=== PATIENT | male | born 1960 ===

== ENCOUNTER 2016-11-24 22:23 | Emergency (ER) | payer OTHER ==
[2016-11-24 22:39] VITALS: RESP 18; TEMP 99.3
[2016-11-24] MEDS ORDERED: Sodium Chloride 0.9% 1,000 ML IV ONE (22:53)
--- NOTE | 2016-11-24 22:58 | C.PDOC ---
History Of Present Illness Patient presents to ED c/o fatigue and dry, chapped/cracking lips for approx 3 days. Patient is s/p PO Keflex (finished 1 week ago) given to him by agriculture teacher (Dr. Short) for skin rash/infection. He has h/o DM II , gout, HTN, hyperlipidemia. He admits he has had this type of rash for several months (6-8), and that is has improved after antibiotics. Patient states he was told by agriculture teacher that rash could be due to stress. He denies chest pain, palpitations, SOB, sore throat, skin peeling, fever, abdominal pain, nausea/vomiting. Time Seen by Provider: 11/24/16 22:44 Chief Complaint (Nursing): Medical Clearance History Per: Patient History/Exam Limitations: no limitations Onset/Duration Of Symptoms: Days (3) Current Symptoms Are (Timing): Still Present Severity: Mild Reports Recently: Treated By A Physician (dermatology ) Past Medical History Reviewed: Historical Data, Nursing Documentation, Vital Signs Vital Signs: Last Vital Signs Temp 99.3 F 11/24/16 22:35 Pulse 81 11/25/16 00:53 Resp 18 11/25/16 00:53 BP 125/76 11/25/16 00:53 Pulse Ox 100 11/25/16 00:53 - Medical History PMH: Arthritis, Diabetes, HTN Family History: States: No Known Family Hx - Social History Hx Alcohol Use: No Hx Substance Use: No - Immunization History Hx Tetanus Toxoid Vaccination: No Hx Influenza Vaccination: No Hx Pneumococcal Vaccination: No Review Of Systems Except As Marked, All Systems Reviewed And Found Negative. Constitutional: Positive for: Weakness, Malaise. Negative for: Fever, Chills Cardiovascular: Negative for: Chest Pain, Palpitations Respiratory: Negative for: Cough, Shortness of Breath Gastrointestinal: Negative for: Nausea, Vomiting Genitourinary: Negative for: Dysuria, Hematuria Skin: Positive for: Rash (improving ) Physical Exam - Physical Exam Appears: Well, Non-toxic, No Acute Distress Skin: Warm, Rash (diffuse dry, scaly circular appearing rash on extremities ) Nose: Normal Oral Mucosa: Moist Tongue: Normal Appearing, No Lesions Lips: No Swelling, Other (dry and peeling/chapped lips) Throat: Normal, No Erythema, No Exudate, No Drooling Cardiovascular: Rhythm Regular Respiratory: Normal Breath Sounds, No Rales, No Rhonchi, No Wheezing Gastrointestinal/Abdominal: Normal Exam, Bowel Sounds, Soft, No Tenderness Pulses: Left Dorsalis Pedis: Normal, Right Dorsalis Pedis: Normal Neurological/Psych: Oriented x3 ED Course And Treatment - Laboratory Results Result Diagrams: 11/24/16 23:24 11/24/16 23:24 O2 Sat by Pulse Oximetry: 96 (RA) Pulse Ox Interpretation: Normal Progress Note: Blood work ordered and reviewed. Patient given IV NS bolus. Reevaluation Time: 00:35 Reassessment Condition: Improved Medical Decision Making Medical Decision Making: Patient with chronic rash > 6 months, s/p PO Keflex 1 week ago, started on allopurinol for possible gout 3-4 weeks ago. Chapped/cracked lips, however no intraoral or other mucous membrance involvement, no sloughing of skin. Patient confirms rash has improved after antibiotics. Differential diagnoses include drug reactions, erythema multiforme, lani hayley syndrome. Patient's blood work WNL, and patient well appearing, with normal vitals. He was offered admission however refuses, states he feels well and prefers to go home. He has signed out against my medical advice and understands that he risks worsening of his current condition. Patient isntructed to stop taking allopurinol, and to return to ER immediately if symptoms worsen/spread to other areas. Otherwise he should follow up with PMD on Saturday. Disposition Counseled Patient/Family Regarding: Studies Performed, Diagnosis, Need For Followup, Rx Given - Disposition Referrals: Anastacio Gee MD [Staff Provider] - Disposition: HOME/ ROUTINE Disposition Time: 00:35 Condition: STABLE Additional Instructions: SEGUIMIENTO CON EL DR GEE EL DE RUPERT ALLOPURINOL BEBER MUCHO LQUIDO SI SE OCURREN SNTOMAS DE LABIOS CHAPPED O DESGLOSE DE OTRAS MEMBRANAS DE PIEL / MUCUS, LLAME [address] [facility] Prescriptions: Mineral Oil/Hydrophil Petrolat [Aquaphor] 1 oin TP TID #1 oin Instructions: Weakness (ED) Forms: [employer] (Malian), (AMA) Informed Refusal Print Language: ICELANDIC - POA Present On Arrival: None - Clinical Impression Clinical Impression: Rash, Chapped lips, Generalized weakness, Left against medical advice
[2016-11-24] MEDS ORDERED: Sodium Chloride 0.9% 1,000 ML ONE (23:10)
[2016-11-24 23:28] LABS: BASO # 0.1 K/uL (0.0-0.2); BASO % 1.1 % (0.0-2.0); EOS # 0.2 K/uL (0.0-0.7); EOS % 4.1 % (0.0-4.0); HEMATOCRIT 41.8 % (35.0-51.0); LYMPH # 1.1 K/uL (1.0-4.3); LYMPH % 20.8 % (20.0-40.0); MEAN CELL VOLUME 90.4 fL (80.0-94.0); MEAN CORPUSCULAR HEMOGLOBIN 30.3 pg (27.0-31.0); MEAN CORPUSCULAR HGB CONC 33.6 g/dL (33.0-37.0); MEAN PLATELET VOLUME 9.1 fL (7.2-11.7); MONO # 0.9 K/uL (0.0-0.8); MONO % 16.8 % (0.0-10.0); RED CELL DISTRIBUTION WIDTH 12.3 % (11.5-14.5); WHITE BLOOD COUNT 5.4 K/uL (4.8-10.8)
[2016-11-24 23:37] LABS: INR 0.9
[2016-11-24 23:38] LABS: CHLORIDE 95 mmol/L (98-107)
[2016-11-24 23:39] LABS: POTASSIUM 4.6 mmol/L (3.6-5.2); SODIUM 131 mmol/L (132-148)
[2016-11-24 23:41] LABS: ALB/GLOB RATIO 1.2 (1.0-2.1); ALKALINE PHOSPHATASE 69 U/L (38-126); ALT/SGPT 47 U/L (21-72); AST/SGOT 33 U/L (17-59); BILIRUBIN,TOTAL 0.7 mg/dL (0.2-1.3); BLOOD UREA NITROGEN 34 mg/dL (9-20); CARBON DIOXIDE 21 mmol/L (22-30); GFR AFRICAN-AMERICAN > 60; GLUCOSE,RANDOM 228 mg/dL (75-110); TOTAL PROTEIN 7.2 g/dL (6.3-8.3)
[2016-11-24 23:42] LABS: CALCIUM 8.7 mg/dl (8.6-10.4)
[2016-11-25 00:53] VITALS: BP 125/76; PULSE 81
[2016-11-29 17:47] VITALS: O2SAT 96
== END 2016-11-25 00:54 | disposition home or self-care (01) ==
LOC: C.ER 22:23
DX: R21 Rash and other nonspecific skin eruption (principal); R53.1 Weakness; I10 Essential (primary) hypertension; E11.9 Type 2 diabetes mellitus without complications; Z87.891 Personal history of nicotine dependence
CPT/HCPCS: 80053; 82550; 85025; 85610; 85730; 99283; J7040

== ENCOUNTER 2016-11-26 06:27 | Emergency (ER) | payer OTHER ==
[2016-11-26 06:39] VITALS: RESP 18; TEMP 98.3; O2SAT 98
[2016-11-26] MEDS ORDERED: Sodium Chloride 0.9% 1,000 ML IV ONE (07:18)
[2016-11-26 07:44] LABS: BASO # 0.1 K/uL (0.0-0.2); BASO % 1.3 % (0.0-2.0); EOS # 0.1 K/uL (0.0-0.7); EOS % 3.2 % (0.0-4.0); HEMATOCRIT 41.8 % (35.0-51.0); LYMPH # 1.2 K/uL (1.0-4.3); LYMPH % 27.9 % (20.0-40.0); MEAN CELL VOLUME 90.8 fL (80.0-94.0); MEAN CORPUSCULAR HEMOGLOBIN 30.6 pg (27.0-31.0); MEAN CORPUSCULAR HGB CONC 33.7 g/dL (33.0-37.0); MEAN PLATELET VOLUME 8.7 fL (7.2-11.7); MONO # 0.7 K/uL (0.0-0.8); MONO % 15.2 % (0.0-10.0); NRBC % 0.1 % (0.0-2.0); RED CELL DISTRIBUTION WIDTH 12.5 % (11.5-14.5); WHITE BLOOD COUNT 4.5 K/uL (4.8-10.8)
[2016-11-26 08:01] LABS: CHLORIDE 100 mmol/L (98-107)
[2016-11-26 08:02] LABS: POTASSIUM 4.7 mmol/L (3.6-5.2); SODIUM 133 mmol/L (132-148)
[2016-11-26 08:04] LABS: BILIRUBIN,TOTAL 0.7 mg/dL (0.2-1.3); GFR AFRICAN-AMERICAN > 60
[2016-11-26 08:05] LABS: ALB/GLOB RATIO 1.1 (1.0-2.1); ALKALINE PHOSPHATASE 71 U/L (38-126); ALT/SGPT 45 U/L (21-72); AST/SGOT 35 U/L (17-59); BLOOD UREA NITROGEN 25 mg/dL (9-20); CALCIUM 9.1 mg/dl (8.6-10.4); CARBON DIOXIDE 22 mmol/L (22-30); GLUCOSE,RANDOM 149 mg/dL (75-110); TOTAL PROTEIN 7.3 g/dL (6.3-8.3)
[2016-11-26 08:10] LABS: RBC URINE 3 /hpf (0-3); URINE BACTERIA RARE (<OCC); URINE BILIRUBIN NEGATIVE (NEGATIVE); URINE BLOOD 1+ (NEGATIVE); URINE COLOR Yellow (YELLOW); URINE GLUCOSE (UA) 3+ mg/dL (Normal); URINE HYALINE CAST 0-2 /lpf (0-2); URINE KETONE NEGATIVE (NEGATIVE); URINE LEUKOCYTE ESTERASE NEG Leu/uL (Negative); URINE PROTEIN NEGATIVE (NEGATIVE); URINE UROBILINOGEN NORMAL mg/dL (0.2-1.0); WBC URINE 2 /hpf (0-5)
[2016-11-26 08:41] LABS: THYROID STIMULATING HORMONE 1.39 mIU/L (0.46-4.68)
[2016-11-26] MEDS ORDERED: Sodium Chloride 0.9% 1,000 ML ONE (08:52)
--- NOTE | 2016-11-26 09:35 | RAD ---
PROCEDURE: CHEST RADIOGRAPH, 1 VIEW HISTORY: r/o infiltrate COMPARISON: None available. FINDINGS: LUNGS: Clear. PLEURA: No pneumothorax or pleural fluid seen. CARDIOVASCULAR: Normal. OSSEOUS STRUCTURES: No significant abnormalities. VISUALIZED UPPER ABDOMEN: Normal. OTHER FINDINGS: None. IMPRESSION: No active disease.
--- NOTE | 2016-11-26 09:38 | C.PDOC ---
History Of Present Illness 55 yr old male presents to the ER with complaints of weakness for the past 2 weeks. Patient reports his hands feel weak. Also, patient states she is currently being treated for a rash by public health representative with improvement. Patient denies fever, chest pain, SOB, nausea, vomiting, abdominal pain, headache or dizziness. Time Seen by Provider: 11/26/16 07:14 Chief Complaint (Nursing): Weakness/Neurological Deficit History Per: Patient History/Exam Limitations: no limitations Onset/Duration Of Symptoms: Days (2 weeks) Past Medical History Reviewed: Historical Data, Nursing Documentation, Vital Signs Vital Signs: Last Vital Signs Temp 98.3 F 11/26/16 06:34 Pulse 62 11/26/16 09:55 Resp 18 11/26/16 09:55 BP 122/80 11/26/16 09:55 Pulse Ox 98 11/26/16 10:35 - Medical History PMH: Arthritis, Diabetes, HTN Family History: States: No Known Family Hx - Social History Hx Alcohol Use: No Hx Substance Use: No - Immunization History Hx Tetanus Toxoid Vaccination: No Hx Influenza Vaccination: No Hx Pneumococcal Vaccination: No Review Of Systems Except As Marked, All Systems Reviewed And Found Negative. Constitutional: Positive for: Weakness. Negative for: Fever Cardiovascular: Negative for: Chest Pain Respiratory: Negative for: Shortness of Breath Gastrointestinal: Negative for: Nausea, Vomiting, Abdominal Pain Musculoskeletal: Positive for: Other ((+) Weakness in hands. ) Neurological: Negative for: Headache, Dizziness Physical Exam - Physical Exam Appears: Non-toxic, No Acute Distress Skin: Warm, Dry, Other ((+) Multiple skin lesion sin various stages of healing ) Head: Atraumatic, Normacephalic Eye(s): bilateral: Normal Inspection, PERRL, EOMI ED Course And Treatment - Laboratory Results Result Diagrams: 11/26/16 07:35 11/26/16 07:35 ECG: Interpreted By Me, Viewed By Me ECG Rhythm: Sinus Rhythm ECG Interpretation: Normal Interpretation Of ECG: Normal axis. Normal intervals. Rate From EC (BPM) O2 Sat by Pulse Oximetry: 98 (RA ) Pulse Ox Interpretation: Normal - Radiology CXR: Viewed By Me, Read By Radiologist CXR Interpretation: Yes: No Acute Disease Medical Decision Making Medical Decision Making: PLAN: * CXR * EKG * Troponin * CBC * CMP * Urinalysis * Sodium Chloride IV Disposition - Disposition Referrals: Anastacio Barry MD [Primary Care Provider] - Disposition: HOME/ ROUTINE Disposition Time: 08:45 Condition: IMPROVED Additional Instructions: Thank you for letting us take care of you today. Your provider was Dr. Garvin. You were treated for general body weakness. The emergency medical care you received today was directed at your acute symptoms. If you were prescribed any medication, please fill it and take as directed. It may take several days for your symptoms to resolve. Return to the Emergency Department if your symptoms worsen, do not improve, or if you have any other problems. Please contact your doctor or call one of the physicians/clinics you have been referred to that are listed on the Patient Visit Information form that is included in your discharge packet. Bring any paperwork you were given at discharge with you along with any medications you are taking to your follow up visit. Our treatment cannot replace ongoing medical care by a primary care provider (PCP) outside of the emergency department. Thank you for allowing the [facility] team to be part of your care today. Follow up with Dr. Barry in 2-3 days for re-evaluation and further management. Instructions: Weakness (ED) Forms: Gen Discharge Inst Hungarian, Work Excuse Print Language: URUGUAYAN - Clinical Impression Clinical Impression: Generalized weakness - Scribe Statement The provider has reviewed the documentation as recorded by the Sanfordibreece Mazariegos Provider Attestation: All medical record entries made by the Sanfordibreece were at my direction and personally dictated by me. I have reviewed the chart and agree that the record accurately reflects my personal performance of the history, physical exam, medical decision making, and the department course for this patient. I have also personally directed, reviewed, and agree with the discharge instructions and disposition.
[2016-11-26 09:56] VITALS: BP 122/80; PULSE 62
--- NOTE | 2016-11-27 11:50 | CARD ---
APPROVED REPORT EKG Measurement Heart [id number] <Conclusion> Normal sinus rhythm Minimal voltage criteria for LVH, may be normal variant Nonspecific ST abnormality Abnormal ECG
== END 2016-11-26 09:57 | disposition home or self-care (01) ==
LOC: C.ER 06:27 → SUPCPDRO 06:27 → C.ER 09:57
DX: R53.1 Weakness (principal)

== ENCOUNTER 2018-06-09 13:38 | Inpatient (IN) | payer MEDICAID, OTHER | END 2018-06-18 19:53 | disposition home or self-care (01) | DRG 287 | LOC: C.ER 13:38 → C.9E 15:54 → C.5S 17:27 | PROC: 0HRNXJ3 Replacement of Left Foot Skin with Synthetic Substitute, Full Thickness, External Approach (ICD-10-PCS; principal; 2018-06-13 14:10) | PROC: 0JBR0ZZ Excision of Left Foot Subcutaneous Tissue and Fascia, Open Approach (ICD-10-PCS; 2018-06-13 14:10) | DX: E11.621 Type 2 diabetes mellitus with foot ulcer (principal); L97.529 Non-pressure chronic ulcer of other part of left foot with unspecified severity; L03.116 Cellulitis of left lower limb; I10 Essential (primary) hypertension; Z87.891 Personal history of nicotine dependence; M86.9 Osteomyelitis, unspecified; B96.89 Other specified bacterial agents as the cause of diseases classified elsewhere; E11.51 Type 2 diabetes mellitus with diabetic peripheral angiopathy without gangrene; Z79.4 Long term (current) use of insulin ==